=== PATIENT | male | born 1990 | race Caucasian/White ===

== ENCOUNTER 2024-03-11 23:52 | Emergency (ER) | payer SELFPAY ==
--- NOTE | ~2024-03-11 | XR_ITS ---
EXAMINATION: XR chest 1V portable DATE: 03/12/2024 03:01 INDICATION: Shortness of breath TECHNIQUE: frontal view of the chest was obtained. COMPARISON: None FINDINGS: The lungs are clear with no focal airspace opacities, pulmonary edema, pleural effusion or pneumothor ax. The cardiomediastinal silhouette is normal. Slight S-shaped curvature of the thoracic spine. IMPRESSION: 1. No acute cardiopulmonary disease. Reviewed, dictated and finalized at location A.
[2024-03-11 23:58] VITALS: BP 130/69; PULSE 91; RESP 20; TEMP 36.5; O2SAT 91
[2024-03-12] VITALS (9 sets, daily range): BP systolic 107; BP diastolic 70; PULSE 63–85; RESP 10–18; O2SAT 97–100
--- NOTE | 2024-03-12 | ECG_ITS ---
Test Date: 2024-03-12 00:04:15 Measurements Intervals [place] Rate: 78 P: 34 NM: 159 QRS: 64 QRSD: 91 T: 41 QT: 355 QTc: 406 Interpretive Statements SINUS RHYTHM VOLTAGE CRITERIA FOR LVH MINIMAL Q WAVES- LATERAL LEADS BASELINE ARTIFACT- I, II, III, AVR, AVL, AVF BORDERLINE ECG No previous ECG available for comparison Electronically Signed On 03-12-2024 07:13:41 CDT by Justin Rojas D.O.
[2024-03-12 01:50] LABS: Basophils Absolute Auto 0.1 K/mm3 (0.0-0.1); Basophils Percent Auto 0.6 % (0.2-1.2); Eosinophils Absolute Auto 0.1 K/mm3 (0-0.3); Hematocrit 39.1 % (42.0-52.0); Hemoglobin 13.5 g/dL (14.0-18.0); Immature Granulocyte Absolute 0.02 K/mm3 (0.00-0.031); Immature Granulocyte Percent A 0.2 % (0-0.5); Lymphocytes Absolute Auto 1.88 K/mm3 (0.9-3.2); Lymphocytes Percent Auto 22.9 % (18.3-44.2); Mean Corpuscular HGB Conc 34.5 g/dl (32-36); Mean Corpuscular Hemoglobin 31.8 pg (26-34); Mean Corpuscular Volume 92.2 fl (80-100); Mean Platelet Volume 8.4 fl (7.4-10.4); Monocytes Absolute Auto 0.7 K/mm3 (0.1-0.6); Monocytes Percent Auto 8.2 % (2.6-8.5); Neutrophils Absolute Auto 5.5 K/mm3 (1.3-6.7); Neutrophils Percent Auto 67.1 % (45.5-73.1); Platelet Count Result 253 k/mm3 (150-375); Red Blood Count 4.24 M/mm3 (4.6-6.20); White Blood Count 8.2 K/mm3 (4.5-10.0)
[2024-03-12 02:17] LABS: Alanine Aminotransferase 24 U/L (6-50); Albumin Level 4.3 g/dL (3.5-5.1); Alkaline Phosphatase 68 U/L (38-126); Anion Gap 7 mmol/L (4-12); Aspartate Amino Transferase 39 U/L (17-59); Bilirubin,Total 0.5 mg/dL (0.2-1.3); Blood Urea Nitrogen 7 mg/dL (9-20); Calcium 9.4 mg/dL (8.4-10.2); Carbon Dioxide 29 mmol/L (22-30); Chloride 104 mmol/L (98-107); Estimated CRCL calculation 135 ml/min; Estimated Glomerular Filt Rate > 60; Glucose 93 mg/dL (65-110); Potassium 3.7 mmol/L (3.4-5.0); Sodium 140 mmol/L (137-145)
--- NOTE | 2024-03-12 02:18 | ED.CHESTPAIN ---
HPI - Chest Pain General Chief Complaint: Chest Pain Stated Complaint: back pain Time Seen by Provider: 03/12/24 01:18 History of Present Illness HPI narrative: 33-year-old male present to the emergency department for evaluation for chest pain back pain and some shortness of breath. Patient states he has been having these symptoms for multiple months. Patient was seen previously at [facility] and was diagnosed with inflation of the chest. Patient reports the symptoms have persisted and now patient states he has intermittent chest tightness and intermittent back pain. Patient has been sporadically taking ibuprofen with no significant improvement in his symptoms. Patient states he did try go back to [place] yesterday but it was too busy so he presented to [place] today for evaluation. Patient states he does not smoke but does continue to vape. Related Data Allergies Allergy/AdvReac Type Severity Reaction Status Date / Time No Known Allergies Allergy Verified 03/12/24 01:51 Review of Systems Review of Systems: All systems reviewed & are unremarkable except as noted in HPI and below Exam Narrative: APPEARANCE: Well appearing, no pain, no distress, well-nourished. HEAD: normocephalic, atraumatic. EYES: PERRLA/EOMI, conjunctivae clear. NOSE: Normal no drainage EARS:TMS clear with good light reflex. THROAT: Pharynx clear, no exudate. NECK: Supple. No adenopathy, no masses. RESPIRATORY: Airway patent, respirations nonlabored. Clear to auscultation bilaterally, no rales, rhonchi, wheezing. CARDIOVASCULAR: Regular rate and rhythm without murmurs rubs or gallops. ABDOMINAL: Soft, nontender, nondistended, normal bowel sounds MUSCULOSKELETAL: Reproducible chest wall tenderness to palpation NEURO: Alert. Cranial nerves II through XII intact. Grossly intact SKIN: Warm, dry. Normal Color Course Course Emergency Course: Patient felt improved with treatment. Patient was discharged home Vital Signs Vital signs: Vital Signs Temperature 97.7 F 03/11/24 23:58 Pulse Rate 91 03/11/24 23:58 Respiratory Rate 20 03/11/24 23:58 Blood Pressure 130/69 03/11/24 23:58 Pulse Oximetry 91 03/11/24 23:58 Oxygen Delivery Room Air 03/11/24 23:58 Temperature 97.7 F 03/11/24 23:58 Pulse Rate 68 03/12/24 03:00 Respiratory Rate 16 03/12/24 03:00 Blood Pressure 107/70 03/12/24 01:51 Pulse Oximetry 100 03/12/24 03:00 Oxygen Delivery Room Air 03/12/24 01:50 MDM - Chest Pain MDM Narrative Medical decision making narrative: 33-year-old male presents to the emergency department for back pain. Patient also reports some shortness of breath. Patient is afebrile with no leukocytosis and a stable hemoglobin of 13.5. Patient has no abnormalities on his CMP patient's troponin was not elevated. Patient had a negative D-dimer. Chest x-ray shows no acute cardiopulmonary abnormality. Patient was encouraged to quit smoking and vaping. Patient was encouraged close follow-up with his primary care physician. Low concern for ACS. Differential Diagnosis Differential diagnosis: Likely pneumothorax, unstable angina pectoris, atypical chest pain, st elevation myocardial infarction, costochondritis, chest pain and biliary colic Lab Data Attestation: I reviewed the patient's lab results. 03/12/24 01:45 03/12/24 01:45 Labs: Lab Results 03/12/24 Range/Units 01:45 WBC 8.2 (4.5-10.0) K/mm3 RBC 4.24 L (4.6-6.20) M/mm3 Hgb 13.5 L (14.0-18.0) g/dL Hct 39.1 L (42.0-52.0) % MCV 92.2 (80-100) fl MCH 31.8 (26-34) pg MCHC 34.5 (32-36) g/dl RDW 14.0 (11.5-14.5) % Plt Count 253 (150-375) k/mm3 MPV 8.4 (7.4-10.4) fl Immature Gran % (Auto) 0.2 (0-0.5) % Neut % (Auto) 67.1 (45.5-73.1) % Lymph % (Auto) 22.9 (18.3-44.2) % [place] % (Auto) 8.2 (2.6-8.5) % Eos % (Auto) 1.0 (0-4.4) % Baso % (Auto) 0.6 (0.2-1.2) % Lymph # (Auto) 1.88 (0.9-3.2)
[2024-03-12 02:27] LABS: D Dimer < 0.27 ug/mL (<0.48)
[2024-03-12 02:28] LABS: Troponin I < 0.012 ng/mL (0.000-0.034)
[2024-03-12] MEDS: ALBUTEROL SULFATE NEB 2.5 MG/3 ML INH INHALATION (02:31)
[2024-03-12] MEDS: KETOROLAC 15 MG/ML VIAL (*BKC) IV PUSH (03:42)
[2024-03-12] MEDS: CYCLOBENZAPRINE HCL 10 MG TABLET PO (03:42)
== END 2024-03-12 03:45 | disposition home or self-care (01) ==
PROVIDERS: Emergency Provider Emergency Medicine; PCP Emergency Medicine
DX: M54.9 Dorsalgia, unspecified (principal); F17.290 Nicotine dependence, other tobacco product, uncomplicated; R94.31 Abnormal electrocardiogram [ECG] [EKG]
CPT/HCPCS: 36415; 71045; 80053; 84484; 85025; 85380; 93005; 94640; 96374; 99284; A9270; J1885